=== PATIENT | female | born 1990 | race African-American/Black ===

== ENCOUNTER 2017-04-08 14:57 | Emergency (ER) | payer MEDICAID, OTHER ==
[2017-04-08] MEDS ORDERED: Ibuprofen 200 MG TAB ONE (15:10)
== END 2017-04-08 15:54 | disposition home or self-care (01) ==
LOC: ERS 14:57
DX: J06.9 Acute upper respiratory infection, unspecified (principal)
CPT/HCPCS: 87804; 99283

== ENCOUNTER 2018-03-06 13:27 | Day surgery (SDC) | payer MEDICAID ==
--- NOTE | 2018-03-06 23:31 | CON ---
DATE OF CONSULTATION: 03/06/2018 PRIMARY OB: Dr. Miguel Watson. CHIEF COMPLAINT: Pelvic pain and back pain. HISTORY OF PRESENT ILLNESS: Patient is a 27-year-old with an intrauterine at 22 weeks and 2 days, who presents to Labor and Delivery with a history of pelvic and back pain. Patient reports that the pain is in her lower back and in her lower abdomen, pelvic area. She says it is worse with activity and movement. At one point, she says that the pain sometimes comes and goes. She does admit that she has been more active in the last few days in the holidays than usual. Patient denies fall, headache, chest pain, shortness of breath, nausea, vomiting, or diarrhea. She does report constipation that has been chronic in nature. Denies any new rashes or hip problems. She reports lower back pain in her sacral region and lower inguinal pain. Denies change in her discharge, though she reports that yesterday she had a mucousy discharge that has since resolved. Denies any urinary urgency or frequency. PAST MEDICAL HISTORY: Negative. PAST SURGICAL HISTORY: Negative. SOCIAL HISTORY: Denies drug, alcohol, or tobacco use. ALLERGIES: NO KNOWN DRUG ALLERGIES. MEDICATIONS: vitamins. LABORATORY DATA: OB labs are unavailable at the time of dictation. REVIEW OF SYSTEMS: Per HPI. PHYSICAL EXAMINATION: VITAL SIGNS: Blood pressure 113/64, heart rate of 91, and respiratory rate 18. GENERAL: She appears to be in no acute distress. She is alert, oriented, cooperative, and pleasant to interact with. HEAD: Normocephalic and atraumatic. LUNGS: Clear to auscultation bilaterally. HEART: Has regular rate and rhythm. ABDOMEN: Gravid and soft. She does have some tenderness to palpation in her inguinal region bilaterally. BACK: She has SI joint tenderness bilaterally to palpation. EXTREMITIES: Nontender and nonedematous. CERVICAL EXAM: Per nursing staff it is closed and very high. DATA REVIEWED: Heart tones are Doppler'd at 138. ASSESSMENT AND PLAN: Patient is a 27-year-old female with an intrauterine at 22 weeks experiencing musculoskeletal pain of . She has not taken any pain medication at home including Tylenol, but does report she had Tylenol at the house. She also reports that she drove herself here and has plans to drive herself home. Patient has been offered two Tylenol before she leaves versus taking it when she gets home and patient has opted to take it when she gets home. She has been encouraged to follow up with her primary OB, Dr. Watson, as needed. Job ID: [id number]
== END 2018-03-06 15:21 | disposition home or self-care (01) ==
LOC: L&D/OP 13:27
PROVIDERS: ATTEND Obstetrics & Gynecology
DX: O99.89 Other specified diseases and conditions complicating pregnancy, childbirth and the puerperium (principal); M54.5 Low back pain; Z3A.22 22 weeks gestation of pregnancy

== ENCOUNTER 2018-06-27 19:31 | Day surgery (SDC) | payer OTHER ==
[2018-06-27 20:04] VITALS: BP 134/74; TEMP 98.2; BMI 37.2
--- NOTE | 2018-06-27 23:41 | PRG ---
DATE OF SERVICE: 06/27/2018 PRIMARY OB: Dr. Miguel Watson. CHIEF COMPLAINT: Pelvic and vaginal pain. HISTORY OF PRESENT ILLNESS: The patient is a 27-year-old G6, P2 female with an intrauterine at 38 weeks and 3 days, who is presenting with a 1-day history of pelvic and vaginal pain. The patient reports that she has been walking a lot in an effort to get herself in labor. She also reports that she has been riding a bicycle. The patient reports her pain is constant, feeling it is bilaterally in her lower pelvis and in her labia and vaginal region. She reports the pain is sharp and associated with activity and movement. She denies any regular abdominal contraction pain. She also reports that she has been under the weather for the last couple of weeks with cough and congestion. She reports more recently her ears have been hurting and she has been using cotton in her ears because the wind will make them feel worse. She reports a sore throat. She denies any fever. Denies any fall, headache, chest pain, shortness of breath, nausea, vomiting, diarrhea or constipation, any hip problems, knee problems, muscle weakness, any vaginal bleeding, or urinary urgency. PAST MEDICAL HISTORY: History of chlamydia. PAST SURGICAL HISTORY: D and C. ALLERGIES: NO KNOWN DRUG ALLERGIES. MEDICATIONS: vitamins. SOCIAL HISTORY: Denies drug, alcohol, or tobacco use. OB LABORATORY DATA: Blood type is A positive. Antibody screen is negative. She is rubella immune. RPR is nonreactive. Hepatitis B surface antigen negative. HIV negative. GC, chlamydia with this negative. REVIEW OF SYSTEMS: Per HPI. PHYSICAL EXAMINATION: VITAL SIGNS: Blood pressure 121/88, heart rate of 98, respiratory rate 18, and temperature 98.2. GENERAL: She appears to be in no acute distress. She is alert, oriented, cooperative, and pleasant to interact with. HEAD: Normocephalic, atraumatic. LUNGS: Clear to auscultation bilaterally. HEART: Has regular rate and rhythm. ABDOMEN: Soft. She does have tenderness in the lower pelvis to palpation. EXTREMITIES: Nontender, nonedematous. : Per nursing staff is 3.5, 75%, -3 station. HEENT: On her ear exam, the patient has clear tympanic membranes with no purulence or bulging membranes. She does have external canals appear irritated and inflamed, little swelling bilaterally. Throat is erythematous, but no purulence. DIAGNOSTIC DATA: heart tracing shows a baseline in the 140s with moderate long-term variability, positive 15 x 15 accelerations, no decelerations. Tocometer showing some irritability, but no contractions. ASSESSMENT AND PLAN: The patient is a 27-year-old G6, P2 female with an intrauterine at 38 weeks with primarily musculoskeletal pain of associated with her increased activity. She also appears to have some otitis externa, maybe allergies or viral syndrome of some kind. I have shared with the patient my findings and have given her reassurance that she has no evidence of labor at this time, though her cervix is very favorable. I have given her gentamicin and hydrocortisone ear drops with instructions on how to use them. I have also prescribed her Tylenol No.3, #10, to be taken at night to help her sleep, with the pain that she is experiencing and instructions to take Tylenol in the day as needed for pain up to 1 g twice a day with the third dosing in the evening with Tylenol No.3. Fetus is reactive with category 1 tracing. The patient is being discharged to home and has an appointment to see Dr. Watson tomorrow. Job ID: [id number]
== END 2018-06-27 21:20 | disposition home or self-care (01) ==
LOC: L&D/OP 19:31
PROVIDERS: ATTEND Family Medicine
DX: O99.89 Other specified diseases and conditions complicating pregnancy, childbirth and the puerperium (principal); R10.2 Pelvic and perineal pain; Z3A.38 38 weeks gestation of pregnancy; Z79.899 Other long term (current) drug therapy
CPT/HCPCS: 59025; 99282

== ENCOUNTER 2018-07-04 07:58 | Inpatient (IN) | payer OTHER ==
[2018-07-04] MEDS ORDERED: Lidocaine 1% (PF) 30 ML VIAL SC PRN (08:00)
[2018-07-04] MEDS ORDERED: Methylergonovine 0.2 MG/ML VIAL IM PRN (08:00)
[2018-07-04] MEDS ORDERED: Diphenoxylate HCl/Atropine Tablet PO PRN (08:00)
[2018-07-04] MEDS ORDERED: Carboprost 250 MCG/ML AMP IM PRN (08:00)
[2018-07-04] MEDS ORDERED: Ibuprofen 800 MG TAB PO PRN (08:00)
[2018-07-04] MEDS ORDERED: Misoprostol 200 MCG TAB PR PRN (08:00)
[2018-07-04] MEDS ORDERED: HYDROcodone/Acetaminophen 5/325 mg Tablet PO PRN ×2 (08:00→21:20)
[2018-07-04] MEDS ORDERED: Butorphanol Tartrate 1 MG/ML VIAL SLOW IVP PRN (08:10)
[2018-07-04] MEDS ORDERED: Promethazine HCl 25 MG/ML VIAL IM PRN ×3 (08:10→21:20)
[2018-07-04] MEDS ORDERED: NS / Oxytocin 40 units/1000ml 1,000 ML IV PRN (08:10)
[2018-07-04] MEDS ORDERED: Ondansetron PF 4 MG/2 ML Vial IVP PRN ×3 (08:10→21:20)
[2018-07-04] MEDS ORDERED: NS w/ Oxytocin 10 units 500 ML IV SCH ×2 (08:15)
[2018-07-04] MEDS: Lactated Ringer's 1,000 ML IV SCH ×3 (08:43→15:44)
[2018-07-04 09:12] LABS: Hemoglobin 9.9 g/dL (12.0-16.0); Mean Corpuscular HGB CONC 31.4 g/dL (32.0-36.0); Mean Corpuscular Hemoglobin 22.9 pg (27.0-31.0); Mean Corpuscular Volume 72.7 fL (78.0-98.0); Mean Platelet Volume 8.4 fL (7.4-10.4); Platelet Count 323 thou/uL (130-400); RBC Distribution Width 15.1 % (11.5-14.5); Red Blood Cell (RBC) Count 4.34 mill/uL (4.20-5.40); White Blood Cell (WBC) Count 8.4 thou/uL (4.8-10.8)
[2018-07-04 09:41] LABS: Syphilis Antibody Nonreactive (Nonreactive); Syphilis Antibody Index 0.05 S/CO (<1.00 Non-Reactive)
[2018-07-04 09:42] LABS: HBSAg Index 0.32 S/CO (0-0.99); Hep B Surf Ag Non-Reactive S/CO (NonReactive)
[2018-07-04] MEDS ORDERED: Fentanyl 4 mcg/Bup 0.1% Cadd 100 ML ONE (10:36)
[2018-07-04] MEDS ORDERED: Bupivacaine HCl 0.25%/Epi 0.0005/PF 10 ML VIAL FS ONE (11:11)
[2018-07-04] MEDS ORDERED: Lactated Ringer's 500 ML IV PRN (11:16)
[2018-07-04] MEDS ORDERED: Acetaminophen 325 MG TAB PO PRN (11:16)
[2018-07-04] MEDS ORDERED: ePHEDrine/0.9% NaCl/PF SYRINGE 50 mg/10 ml SLOW IVP PRN (11:16)
[2018-07-04] MEDS ORDERED: Eucerin (Mineral Oil/Petrolatum,White) 30 gm Jar TOP PRN (11:16)
[2018-07-04] MEDS ORDERED: Naloxone HCl 0.4 mg/ml Vial IVP PRN ×2 (11:16)
[2018-07-04] MEDS ORDERED: diphenhydrAMINE 50 MG/ML VIAL IVP PRN (11:16)
[2018-07-04] MEDS ORDERED: Communication Order-Pharmacy FS SCH (11:30)
[2018-07-04] MEDS ORDERED: Fentanyl 4 mcg/Bupivacaine 0.1% Cassette 100 ML EPIDURAL SCH (11:30)
[2018-07-04] MEDS ORDERED: Calcium Carbonate 500 MG ChewTAB PO PRN ×2 (14:48→14:56)
[2018-07-04 15:55] VITALS: BMI 37.3
[2018-07-04 18:10] LABS: Actual Bicarbonate (HCO3v) 19 mEq/L (22-28); Base Excess -8.2 mEq/L (-2.0 to +3.0)
[2018-07-04 18:11] LABS: Actual Bicarbonate (HCO3a) 23.3 mEq/L (22-28); Base Excess (BEa) -6.6 mEq/L (-2.0 to +3.0)
[2018-07-04 18:12] LABS: pH (Cord, venous) 7.23 (7.32-7.43)
[2018-07-04] MEDS ORDERED: Benzocaine-Menthol 82.5 ML CAN TOP PRN (21:20)
[2018-07-04] MEDS ORDERED: diphenhydrAMINE 25 MG CAP PO PRN (21:20)
[2018-07-04] MEDS ORDERED: Lanolin Ointment 7 GM TUBE TOP PRN (21:20)
[2018-07-04] MEDS ORDERED: Preparation H Ointment 28 GM TUBE PR PRN (21:20)
[2018-07-04] MEDS ORDERED: Milk Of Magnesia 30 ML UDCUP PO PRN (21:20)
[2018-07-04] MEDS ORDERED: Bisacodyl 10 MG SUPP PR PRN (21:20)
[2018-07-04] MEDS ORDERED: NS / Oxytocin 40 units/1000ml 1,000 ML IV SCH (21:20)
[2018-07-04] MEDS: HYDROcodone/Acetaminophen 5/325 mg Tablet PO PRN (21:36)
[2018-07-04] MEDS: Docusate Calcium (SURFAK) 240 MG CAP PO SCH (21:36)
[2018-07-05] MEDS: Ibuprofen 800 MG TAB PO SCH ×4 (00:57→21:30)
[2018-07-05] MEDS: HYDROcodone/Acetaminophen 5/325 mg Tablet PO PRN ×5 (02:18→21:30)
[2018-07-05 07:49] LABS: Hemoglobin 8.6 g/dL (12.0-16.0); Mean Corpuscular HGB CONC 32.8 g/dL (32.0-36.0); Mean Corpuscular Hemoglobin 24.5 pg (27.0-31.0); Mean Corpuscular Volume 74.6 fL (78.0-98.0); Mean Platelet Volume 8.4 fL (7.4-10.4); Platelet Count 239 thou/uL (130-400); RBC Distribution Width 15.1 % (11.5-14.5); White Blood Cell (WBC) Count 9.5 thou/uL (4.8-10.8)
[2018-07-05] MEDS: Ferrous Sulfate 325 MG TAB PO SCH ×2 (09:32→18:03)
[2018-07-05] MEDS: Prenatal Vitamin 1 TAB PO SCH (09:33)
[2018-07-05] MEDS: Docusate Calcium (SURFAK) 240 MG CAP PO SCH ×2 (09:33→21:30)
[2018-07-06] MEDS: HYDROcodone/Acetaminophen 5/325 mg Tablet PO PRN ×2 (01:15→09:33)
[2018-07-06] MEDS: Ibuprofen 800 MG TAB PO SCH ×2 (05:56→15:34)
[2018-07-06 09:31] VITALS: BP 128/69; TEMP 97.9
[2018-07-06] MEDS: Docusate Calcium (SURFAK) 240 MG CAP PO SCH (09:32)
[2018-07-06] MEDS: Prenatal Vitamin 1 TAB PO SCH (09:32)
[2018-07-06] MEDS: Ferrous Sulfate 325 MG TAB PO SCH (09:32)
== END 2018-07-06 17:30 | disposition home or self-care (01) | DRG 807 ==
LOC: L&D 07:58 → 3SW 21:07
PROVIDERS: ADMIT Family Medicine; ATTEND Family Medicine
PROC: 10E0XZZ Delivery of Products of Conception, External Approach (ICD-10-PCS; principal; 2018-07-04)
PROC: 0W8NXZZ Division of Female Perineum, External Approach (ICD-10-PCS; 2018-07-04)
PROC: 3E033VJ Introduction of Other Hormone into Peripheral Vein, Percutaneous Approach (ICD-10-PCS; 2018-07-04)
DX: O66.9 Obstructed labor, unspecified (principal); Z37.0 Single live birth; Z3A.39 39 weeks gestation of pregnancy; O77.0 Labor and delivery complicated by meconium in amniotic fluid
CPT/HCPCS: 36415; 51702; 82805; 85027; 86780; 86850; 86900; 86901; 87340; J2001; J2590

== ENCOUNTER 2018-07-08 19:51 | Inpatient (IN) | payer OTHER ==
[2018-07-08 21:13] LABS: #Eosinphils 0.3 thou/uL (0.0-0.7); #Lymphocytes 2.3 thou/uL (1.20-3.40); #Monocytes 0.7 thou/uL (0.11-0.59); #Neutrophils 6.6 thou/uL (1.40-6.50); %Eosinophils 2.6 % (0.0-10.0); %Lymphocytes 22.9 % (21.0-51.0); %Monocytes 6.7 % (0.0-10.0); %Neutrophils 67.8 % (42.0-75.0); Hemoglobin 9.4 g/dL (12.0-16.0); Mean Corpuscular HGB CONC 32.5 g/dL (32.0-36.0); Mean Corpuscular Hemoglobin 24.9 pg (27.0-31.0); Mean Corpuscular Volume 76.6 fL (78.0-98.0); Mean Platelet Volume 7.8 fL (7.4-10.4); Platelet Count 386 thou/uL (130-400); RBC Distribution Width 15.7 % (11.5-14.5); Red Blood Cell (RBC) Count 3.78 mill/uL (4.20-5.40); White Blood Cell (WBC) Count 9.8 thou/uL (4.8-10.8)
[2018-07-08 21:33] LABS: ALT (SGPT) 31 U/L (8-55); AST (SGOT) 34 U/L (5-34); Albumin 3.3 g/dL (3.5-5.0); Alkaline Phosphatase 96 U/L (40-150); Anion Gap 11 mmol/L (10-20); BUN (Urea Nitrogen) 5 mg/dL (7.0-18.7); Bilirubin, Total 0.3 mg/dL (0.2-1.2); Calc. Creatinine Clearance 0 mL/min (70-130); Calcium 8.8 mg/dL (7.8-10.44); Carbon Dioxide 27 mmol/L (22-29); Chloride 106 mmol/L (98-107); Estimated GFR-MDRD Greater than 90; Globulin 3.1 g/dL (2.4-3.5); Glucose 90 mg/dL (70-105); Potassium 3.5 mmol/L (3.5-5.1); Protein, Total 6.4 g/dL (6.0-8.3); Sodium 140 mmol/L (136-145)
[2018-07-08] MEDS ORDERED: Ibuprofen 200 MG TAB ONE (21:33)
[2018-07-08] MEDS ORDERED: diphenhydrAMINE 50 MG/ML VIAL ONE (21:33)
[2018-07-08] MEDS ORDERED: Metoclopramide HCl 10 MG/2 ML VIAL ONE (21:34)
[2018-07-08 22:03] LABS: Bilirubin Negative (Negative); Blood, Urine Large (Negative); Clarity TURBID (Clear); Glucose, Urine (Dipstick) Negative (Negative); Leukocyte Large (Negative); Nitrite Negative (Negative); Protein, Urine (Dipstick) 100 mg/dL (Neg-Trace); pH, Urine 6.5 (5.0-9.0)
[2018-07-08 22:08] LABS: Hyaline Casts/LPF 4-6 HYALINE CAST LPF (0-3 Hyaline); Pathc Cast-AUWi Flag 1.22 (0-2.49)
[2018-07-08 22:10] LABS: Yeast-AUWi Flag 54.4 (0-25.0)
[2018-07-08 22:20] LABS: Bacteria/HPF 2+ HPF (None Seen)
[2018-07-08 22:21] LABS: Renal Epithelial 0-3 HPF (0-3)
[2018-07-09 01:08] VITALS: BMI 33.4
[2018-07-09] MEDS ORDERED: Magnesium Sulfate 20 GM/WATER 500 ML BAG IVPB SCH (01:30)
[2018-07-09] MEDS ORDERED: Ondansetron PF 4 MG/2 ML Vial IVP PRN (01:30)
[2018-07-09] MEDS ORDERED: Calcium Gluconate 4.6 MEQ in Sodium Chloride 0.9% 100 ML IVPB PRN (01:30)
[2018-07-09] MEDS ORDERED: Acetaminophen 500 MG TAB PO PRN ×2 (01:30→08:38)
[2018-07-09] MEDS ORDERED: Calcium Gluc 4.6 MEQ/10 ML (100 MG/ML) SLOW IVP PRN (01:30)
[2018-07-09] MEDS ORDERED: Promethazine HCl 25 MG/ML VIAL IM PRN (01:30)
[2018-07-09] MEDS ORDERED: Magnesium Sulfate 20 gm/500 ml 20 GM/500 ML BAG ONE (01:39)
[2018-07-09] MEDS ORDERED: hydrALAZINE 20 MG/ML VIAL SLOW IVP PRN (01:40)
--- NOTE | 2018-07-09 07:52 | ULT ---
BILATERAL LOWER EXTREMITY VENOUS DOPPLER: Date 07/09/18 HISTORY: Edema. Recent delivery. COMPARISON: None. FINDINGS: Real-time Bone scale and color Doppler with spectral analysis of the bilateral lower extremity venous system was performed. The common femoral, femoral, proximal portions of greater saphenous and deep f emoral veins, as well as the popliteal and posterior tibial veins are interrogated. Normal flow, augmentation, and compression. IMPRESSION: No deep venous thrombosis. POS: HOME
[2018-07-09] MEDS: cefTRIAXone\\ROCEPHIN 2 GM in Sodium Chloride 0.9% 100 ML IVPB SCH (09:37)
[2018-07-09] MEDS: Magnesium Sulfate 20 gm/500 ml 20 GM/500 ML BAG IVPB SCH ×2 (10:41→21:00)
[2018-07-09] MEDS ORDERED: HYDROcodone/Acetaminophen 5/325 mg Tablet PO SCH (12:15)
[2018-07-09] MEDS ORDERED: HYDROcodone/Acetaminophen 5/325 mg Tablet PO PRN (16:00)
[2018-07-09] MEDS ORDERED: Lactated Ringer's 1,000 ML IV SCH (16:45)
[2018-07-09] MEDS ORDERED: Ibuprofen 800 MG TAB PO SCH (20:00)
[2018-07-10] MEDS ORDERED: Bisacodyl 10 MG SUPP PR PRN (01:03)
[2018-07-10] MEDS ORDERED: Milk Of Magnesia 30 ML UDCUP PO PRN (01:03)
[2018-07-10] MEDS ORDERED: Benzocaine-Menthol 82.5 ML CAN TOP PRN (01:03)
[2018-07-10] MEDS: Ibuprofen 800 MG TAB PO SCH ×3 (06:19→16:06)
[2018-07-10] MEDS ORDERED: Adacel (T-DAP) 0.5 ML SYRINGE IM ONE (09:00)
[2018-07-10] MEDS ORDERED: Docusate Calcium (SURFAK) 240 MG CAP PO SCH (09:00)
[2018-07-10] MEDS ORDERED: Prenatal Vitamin 1 TAB PO SCH (09:00)
[2018-07-10] MEDS: cefTRIAXone\\ROCEPHIN 2 GM in Sodium Chloride 0.9% 100 ML IVPB SCH (09:02)
[2018-07-10] MEDS: Ferrous Sulfate 325 MG TAB PO SCH ×2 (09:03→16:05)
[2018-07-10 17:10] VITALS: BP 128/75; TEMP 98.5
== END 2018-07-10 18:00 | disposition home or self-care (01) | DRG 776 ==
LOC: ERS 19:51 → L&D 07-09 00:50 → 3SW 07-10 02:21
PROVIDERS: ADMIT Family Medicine; ATTEND Family Medicine
DX: O14.95 Unspecified pre-eclampsia, complicating the puerperium (principal)
CPT/HCPCS: 36415; 51702; 80053; 81003; 81015; 82570; 83735; 84156; 85025; 85379; 87086; 93970; 96365; 96367; 96375; J0696; J1200; J2765; J3475; J3490